=== PATIENT | female | born 1935 ===

== ENCOUNTER 2017-10-27 08:58 | Observation (INO) | payer MEDICARE, OTHER ==
[2017-10-27] MEDS ORDERED: ceFAZolin 1 gm in NS 2 GM/200 ML BAG IVPB ONE (09:23)
[2017-10-27] MEDS ORDERED: Lidocaine/Epinephrine 1% 1:100000 10 ML IJ ONE (09:24)
[2017-10-27] MEDS ORDERED: Bupivacaine 0.25% Inj(30mL) ONE (09:24)
[2017-10-27] MEDS ORDERED: Rocuronium 10 mg/ml (5 ml) ONE (09:54)
[2017-10-27] MEDS ORDERED: Propofol 10 mg/ml Inj (20 ML) ONE (09:54)
[2017-10-27] MEDS: Bupivacaine 0.25% Inj(30mL) ONE ×2 (10:51→11:41)
[2017-10-27] MEDS ORDERED: Sodium Chloride 0.9% 20 ML IV ONE (11:12)
[2017-10-27] MEDS ORDERED: Neostigmine Methylsulfate 3mg/3ml Syringe IV ONE (11:37)
[2017-10-27] MEDS ORDERED: Dexamethasone 4 mg/1 ml IVP PRN (11:45)
[2017-10-27] MEDS: HYDROmorphone 0.5 mg/0.5 ml ISec IVP PRN ×2 (12:20→13:15)
[2017-10-27] MEDS ORDERED: HYDROmorphone 1 mg/ml ISec ONE ×2 (12:22→13:16)
[2017-10-27] MEDS ORDERED: Oxycodone/Acetaminophen 5/325 mg Tab PO PRN (12:24)
--- NOTE | 2017-10-27 12:37 | PCM.SURG1 ---
Surgeon's Initial Post Op Note - Surgeon's Notes Surgeon: Dr. Gil Revival Clerk: CHRISTINA Mai; Jemima Lam, PGY2 Type of Anesthesia: General Endo Pre-Operative Diagnosis: Symptomatic cholelithiasis, cholecystitis Operative Findings: numerous adhesions, distended gallbladder, Post-Operative Diagnosis: same Operation Performed: Robotic assisted laparoscopic lysis of adhesions, cholecystectomy Specimen/Specimens Removed: Gallbladder Estimated Blood Loss: EBL {In ML}: 5 Blood Products Given: N/A Drains Used: No Drains Date of Surgery/Procedure: 10/27/17 Time of Surgery/Procedure: 11:00
[2017-10-27] MEDS ORDERED: Lactated Ringer's 1,000 ML IV ONE (14:00)
[2017-10-27] MEDS ORDERED: HYDROmorphone 0.5 mg/0.5 ml ISec IVP PRN (14:22)
[2017-10-27] MEDS: (Novolin R) Insulin Human Regular 100 units/ml vial SC SCH ×2 (16:46→22:13)
--- NOTE | 2017-10-28 00:46 | OP ---
PROCEDURE DATE: 10/27/2017 PREOPERATIVE DIAGNOSES: 1. Chronic cholecystitis and cholelithiasis. 2. Dilated common bile duct. 3. Possible postoperative and postinfectious adhesions status post hysterectomy. POSTOPERATIVE DIAGNOSES: 1. Chronic cholecystitis and cholelithiasis. 2. Dilated common bile duct. 3. Extensive postoperative and postinfectious adhesions of upper abdomen as well as right upper quadrant. PROCEDURES DONE: 1. Robotic cholecystectomy. 2. Robotic extensive lysis of adhesions. 3. Robotic aspiration and drainage of extremely dilated thickened gallbladder. 4. Laparoscopic bilateral transverse abdominis plane block placement. SURGEON: Mark Gil MD STAVE SAW OPERATOR: JULY Thibodeaux and Jemima Ramirez, PGY-2 resident. ANESTHESIA: General endotracheal tube anesthesia. ESTIMATED BLOOD LOSS: Around 20 mL. DRAINS: None. PATHOLOGY: Gallbladder with gallstone was sent for the pathology and aspirated fluid from the gallbladder was sent for the culture. COMPLICATIONS: None. INTRAOPERATIVE FINDINGS: The patient had extensive postoperative adhesion in the upper abdomen as well as right upper quadrant and patient had extremely thickened dilated large gallbladder filled with light color fluid and patient had changes of chronic cholecystitis and cholelithiasis. DESCRIPTION OF PROCEDURE: On intraoperative steps, this is an 82-year-old female who was diagnosed with chronic cholecystitis and patient had multiple admissions for similar reason and the patient also had a dilated CBD and after proper evaluation with MRCP, and after GI consult, the patient was consented for laparoscopic-assisted robotic cholecystectomy, brought to the OR, placed supine on the operating table after induction of the anesthesia. After induction of anesthesia, the abdomen was prepped and draped in the usual sterile fashion. The Amin catheter was placed and the supraumbilical transverse incision was made after incising the skin, subcutaneous tissue, and the fascia. The robotic camera port was placed and pneumo was created. Another 8-mm port was placed in the left upper quadrant after that extensive laparoscopic lysis of adhesions was done with LigaSure to clean the right upper quadrant to put another two 8 mm ports. After placing another two 8 mm ports in right upper quadrant, the robot was brought in, camera arm as well as arm 1 and arm 2 was docked and further lysis of adhesion as well as enterolysis was done and gallbladder was identified. Gallbladder appeared to be extremely thickened and dilated and large, and post aspiration of the gallbladder was done, the thin light colored fluid was drained; and after complete decompression of the gallbladder, the gallbladder was retracted cranially. Calot's triangle dissection was done. The duodenum as well as colonic adhesion to the gallbladder was dissected and the Calot's triangle dissection was continued. The cystic duct appeared to be extremely dilated and thickened. The common bile duct was also identified. Intraoperative Firefly was used, the cystic duct was clipped at 3 places and cut in between 2 clips nearby gallbladder. Cystic artery was also clipped at 3 places and cut in between 2 clips nearby gallbladder. The gallbladder was dissected free from the gallbladder fossa and taken in an EndoCatch bag, taken out through the umbilical port site and sent off the table for the pathology. There was proper hemostasis in each and every part of the procedure. The patient tolerated the procedure well. After proper hemostasis, all the robotic instrument was taken out. The procedure was converted to laparoscopic and a bilateral TAP block was given and 12:12 mL of Marcaine was injected in the right upper, lower and the left upper and lower subcostal region and TAP block was given. After that, all the port was taken out under vision, pneumo was deflated. Gallbladder was sent off the table for pathology. The umbilical port sites were closed in 2 layers, fascia with 0-Vicryl interrupted suture, skin with a 4-0 Monocryl, and dry sterile dressing was applied. The patient tolerated the procedure well. Count of the instrument and gauze was correct. There was no apparent complication. The patient was extubated in OR, sent to the Postanesthesia Care Unit in stable condition. Mark Gil MD RALPH
[2017-10-28 07:40] VITALS: PULSE 79; RESP 18; TEMP 98.7; O2SAT 97
[2017-10-28] MEDS: (Novolin R) Insulin Human Regular 100 units/ml vial SC SCH ×2 (08:01→12:15)
--- NOTE | 2017-10-28 09:56 | CP.PCM.DIS ---
Provider - Provider Date of Admission: 10/27/17 12:20 Attending physician: Mark Gil MD Time Spent in preparation of Discharge (in minutes): 45 Diagnosis - Discharge Diagnosis (1) Abdominal pain Status: Acute (2) Cholelithiasis Status: Chronic (3) Hyperlipidemia Status: Chronic (4) Diabetes mellitus Status: Chronic (5) Arthritis of knee, degenerative Status: Chronic (6) Parkinson disease Status: Chronic (7) HTN (hypertension) Status: Chronic Priority: Medium Hospital Course - Lab Results Lab Results: Most Recent Lab Values POC Glucose (mg/dL) 102 mg/dL (65-110) 10/28/17 05:53 - Hospital Course Hospital Course: Patient is a 82F with symptomatic cholelithiasis who presented for sameday robotic assisted laparoscopic cholecystectomy, which was performed without complications. Patient had significant postoperative pain and was admitted overnight with internal medicine consult for complex medical comorbidities. Patient was able to eat low fat diet without any nausea, vomiting, fevers, or chills. By post op day 1 patient was tolerating pain on PO pain regimen and was discharged home to follow up with Dr. Gil in his office in 10-14 days For full hospital course refer to chart Discharge Exam - Head Exam Head Exam: ATRAUMATIC, NORMOCEPHALIC - Eye Exam Eye Exam: Normal appearance. absent: Conjunctival injection, Scleral icterus - ENT Exam ENT Exam: Mucous Membranes Moist. absent: Mucous Membranes Dry - Respiratory Exam Respiratory Exam: NORMAL BREATHING PATTERN, UNREMARKABLE. absent: Accessory Muscle Use - GI/Abdominal Exam GI & Abdominal Exam: Soft, Tenderness (appropriate RUQ and dian-incisional tenderness to palpation). absent: Distended Additional comments: incision dressings C/D/I - Extremities Exam Extremities exam: normal inspection - Neurological Exam Neurological exam: Alert, Oriented x3 - Psychiatric Exam Psychiatric exam: Normal Affect, Normal Mood - Skin Skin Exam: Dry, Normal Color, Warm Discharge Plan - Discharge Medications Prescriptions: Docusate [Colace] 100 mg PO BID #14 cap oxyCODONE/Acetaminophen [Percocet 5/325 mg Tab] 1 ea PO Q6 3 Days tab - Follow Up Plan Condition: GOOD Disposition: HOME/ ROUTINE Instructions: Low Cholesterol, Saturated Fat, and Trans Fat Diet , Carbohydrate Counting Diet, Cholecystectomy, Laparoscopic Surgery, Diabetes Diet , Gallstones (DC), Docusate, Oxycodone and Acetaminophen, Managing Pain After Surgery Additional Instructions: Call to schedule follow up appointment wiarmando Coughlin in 10-[address] Gil's office or come to ER for fever >100.4, severe pain, drainage from incisions, any other concerning symptoms Do not life >10 pounds for 6 weeks Remove bandaids on Friday but leave tape on incisions until they fall off. Shower on Friday but do not soak incisions Take stool softeners to prevent constipation with the pain medications Follow up with your primary doctor Referrals: Mark Gil MD [Staff Provider] - Clinical Quality Measures - CQM - Stroke Antithrombotic Prescribed: Yes
[2017-10-28] MEDS ORDERED: Enoxaparin 30 mg Syringe SC SCH (10:00)
--- NOTE | 2017-10-28 12:19 | CP.PCM.HP ---
History of Present Illness - History of Present Illness History of Present Illness: Pre-Operative Diagnosis: Symptomatic cholelithiasis, cholecystitis Operative Findings: numerous adhesions, distended gallbladder, Post-Operative Diagnosis: same Operation Performed: Robotic assisted laparoscopic lysis of adhesions, cholecystectomy Past Patient History - Past Medical History & Family History Past Medical History?: Yes - Past Social History Smoking Status: Never Smoked - CARDIAC Hx Cardiac Disorders: Yes Hx Hypercholesterolemia: Yes Hx Hypertension: Yes - PULMONARY Hx Respiratory Disorders: Yes Hx Asthma: Yes (No longer) - NEUROLOGICAL Hx Neurological Disorder: Yes Hx Dizziness: Yes Hx Parkinson's Disease: Yes - HEENT Hx HEENT Problems: Yes Hx Cataracts: Yes - RENAL Hx Chronic Kidney Disease: No - ENDOCRINE/METABOLIC Hx Endocrine Disorders: No - HEMATOLOGICAL/ONCOLOGICAL Hx Blood Disorders: Yes Hx Cancer: Yes (Colon 4 years ) Hx Chemotherapy: Yes - INTEGUMENTARY Hx Dermatological Problems: Yes Hx Psoriasis: Yes (Back ) - MUSCULOSKELETAL/RHEUMATOLOGICAL Hx Musculoskeletal Disorders: Yes Hx Arthritis: Yes (Right knee) Hx Back Pain: Yes Hx Herniated Disk: Yes Hx Unsteady Gait: Yes - GASTROINTESTINAL Hx Gastrointestinal Disorders: Yes Hx Bowel Surgery: Yes (COLON CANCER 2010) Hx Gall Bladder Disease: Yes Hx Gastritis: Yes Other/Comment: Hx colon cancer - GENITOURINARY/GYNECOLOGICAL Hx Genitourinary Disorders: Yes Hx Incontinence: Yes - PSYCHIATRIC Hx Psychophysiologic Disorder: Yes Hx Anxiety: Yes Hx Depression: Yes Hx Substance Use: No - SURGICAL HISTORY Hx Surgeries: Yes Hx Appendectomy: Yes Hx Tubal Ligation: Yes - ANESTHESIA Hx Anesthesia: Yes Hx Anesthesia Reactions: No Hx Malignant Hyperthermia: No Has any member of the family had a problem w/ anesthesia?: No Meds Home Medications: Home Medication List Medication Instructions Recorded Confirmed Type Docusate [Colace] 100 mg PO BID #14 cap 10/28/17 Rx oxyCODONE/Acetaminophen [Percocet 1 ea PO Q6 3 Days tab 10/28/17 Rx 5/325 mg Tab] Allergies/Adverse Reactions: Allergies Allergy/AdvReac Type Severity Reaction Status Date / Time No Known Allergies Allergy Verified 10/13/17 12:13 Results - Vital Signs Recent Vital Signs: Last Vital Signs Temp 98.7 F 10/28/17 07:05 Pulse 79 10/28/17 07:05 Resp 18 10/28/17 07:05 BP 114/69 10/28/17 07:05 Pulse Ox 97 10/28/17 08:00 - Labs Labs: Laboratory Results - last 24 hr 10/27/17 10/27/17 10/27/17 12:39 16:30 21:49 POC Glucose (mg/dL) 145 H 126 H 157 H 10/28/17 10/28/17 05:53 11:08 POC Glucose (mg/dL) 102 145 H
[2017-10-28 15:22] VITALS: BP 96/57
== END 2017-10-28 18:50 | disposition home or self-care (01) ==
LOC: C.SDS 08:58 → C.9S 12:20 → C.6T 17:36
PROVIDERS: ADMIT Surgery Surgical Critical Care; ATTEND Surgery Surgical Critical Care
DX: K80.10 Calculus of gallbladder with chronic cholecystitis without obstruction (principal); K82.8 Other specified diseases of gallbladder; I10 Essential (primary) hypertension; E78.5 Hyperlipidemia, unspecified; E11.9 Type 2 diabetes mellitus without complications; K66.0 Peritoneal adhesions (postprocedural) (postinfection)
CPT/HCPCS: 47562; 82948; 88304; G0378; J0690; J1170; J1650; J2001; J2405; J2704; J2710; J3010; J7030; J7120

== ENCOUNTER 2017-10-31 15:40 | Emergency (ER) | payer MEDICARE, OTHER ==
[2017-10-31] MEDS ORDERED: Sodium Chloride 0.9% 500 ML IV ONE (16:32)
[2017-10-31] MEDS ORDERED: Sodium Chloride 0.9% 1,000 ML IV ONE (16:32)
[2017-10-31] MEDS ORDERED: Albuterol 0.083% Inhal Sol (2.5 mg/3 mL) UD INH STA (16:32)
--- NOTE | 2017-10-31 16:32 | C.PDOC ---
History Of Present Illness 82 year old female presents to the ED for evaluation of cough which began last night. Patient also reports subjective fever. Patient reports decreased appetite and states, "normally she eats well." Patient was discharged 4 days ago s/p laparoscopic cholecystectomy. Patient is baseline chairbound, family states patient has been out of bed and into chair and eating well since she was discharged, until yesterday. Patient denies nausea, vomiting, abdominal pain. COUGH SINCE LAST NIGHT. SUBJ FEVER. +DECR APPETITE "NORMALLY SHE EATS WELL" DC 4 DAYS AGO S/P LAP [place]. PT IS BASELINE CHAIRBOUND, FAMILY STATES PT HAS BEEN OOB AND INTO CHAIR, EATING WELL SINCE DC UNTIL YEST. +NO NV, ABD PAIN. EXAM MILD DIST NONTOXIC LUNGS POOR EFFORT NO W/R/R NO RETRACTIONS NO COUGH ABD SOFT NT DN NO R/G SKIN HEALING POST OP WOUNDS ABD WALL NO EDEMA REMAINDER NEG Time Seen by Provider: 10/31/17 16:07 Chief Complaint (Nursing): Weakness/Neurological Deficit History Per: Patient History/Exam Limitations: no limitations Onset/Duration Of Symptoms: Hrs Current Symptoms Are (Timing): Still Present Associated Symptoms: Fever, Cough. denies: Nausea, Vomiting Additional History Per: Patient Past Medical History Reviewed: Historical Data, Nursing Documentation, Vital Signs Vital Signs: Last Vital Signs Temp 98.5 F 10/31/17 22:32 Pulse 70 10/31/17 22:32 Resp 20 10/31/17 22:32 BP 150/60 10/31/17 22:32 Pulse Ox 99 10/31/17 23:21 - Medical History PMH: Anxiety, Arthritis (Right knee), Asthma (No longer), Back Problems, Depression, Diabetes (type II), Gastritis, Gall Bladder Disease, HTN, Hypercholesterolemia, Parkinson's Disease Denies: Chronic Kidney Disease Surgical History: Appendectomy - [facility] Procedures IMMOBILIZ/WOUND ATTN NEC (06/04/14) INJECT/INFUSE NEC (06/04/14) INTRODUCTION OF SERUM/TOX/VACCINE INTO MUSCLE, PERC APPROACH (10/13/17) Family History: States: Unknown Family Hx - Social History Hx Alcohol Use: No Hx Substance Use: No Review Of Systems Constitutional: Positive for: Fever Respiratory: Positive for: Cough Gastrointestinal: Negative for: Nausea, Vomiting, Abdominal Pain Physical Exam - Physical Exam Appears: Non-toxic, Other (in mild distress ) Skin: Normal Color, Warm, Dry, Other (healing post-op wounds to abdominal wall ) Head: Atraumatic, Normacephalic Eye(s): bilateral: Normal Inspection Oral Mucosa: Moist Neck: Supple Chest: Symmetrical, No Deformity, No Tenderness Cardiovascular: Rhythm Regular, No Murmur Respiratory: No Rales, No Rhonchi, No Wheezing, Other (poor effort. no retractions. no cough ) Gastrointestinal/Abdominal: Soft, No Tenderness, No Guarding, No Rebound Extremity: Normal ROM, Capillary Refill (less than 2 seconds ), No Other (edema ) Neurological/Psych: Oriented x3, Normal Speech, Normal Cognition ED Course And Treatment - Laboratory Results Result Diagrams: 10/31/17 16:40 10/31/17 16:40 O2 Sat by Pulse Oximetry: 99 (on RA) Pulse Ox Interpretation: Normal Progress Note: Bloodwork, CXR, EKG ordered and reviewed. Albuterol INH and IV Fluids administered. Progress - Re-Evaluation Re-evaluation Note: 10/31/17 17:58 APPEARS COMFORTABLE NARD VSS. EATING WO DIFF. DEE NO ACUTE FINDINGS. FAMILY AGREES DC HOME 10/31/17 18:01 INCENTIVE SPIROMETER GIVEN - Data Reviewed Data Reviewed: Lab, Diagnostic imaging, Old records Disposition Counseled Patient/Family Regarding: Studies Performed, Diagnosis, Need For Followup - Disposition Referrals: YOUR,PMD [Other] Mark Gil MD [Staff Provider] - Disposition: HOME/ ROUTINE Disposition Time: 17:59 Condition: IMPROVED Additional Instructions: SIT UPRIGHT, CHEST BREATHING EXERCISES. FOLLOW UP ADVISED BY SURGEON Instructions: How to Use an Incentive Spirometer, Cough, Adult (DC) Forms: [employer] (Thai) - Clinical Impression Clinical Impression: Cough - Scribe Statement The provider has reviewed the documentation as recorded by the Scribe (Siria Olvera) Provider Attestation: All medical record entries made by the Scribe were at my direction and personally dictated by me. I have reviewed the chart and agree that the record accurately reflects my personal performance of the history, physical exam, medical decision making, and the department course for this patient. I have also personally directed, reviewed, and agree with the discharge instructions and disposition.
[2017-10-31] MEDS ORDERED: Sodium Chloride 0.9% 1,000 ML ONE ×2 (16:42→17:43)
[2017-10-31] MEDS ORDERED: Albuterol 0.083% Inhal Sol (2.5 mg/3 mL) UD ONE (16:42)
[2017-10-31 16:45] LABS: BASO # 0.1 K/uL (0.0-0.2); BASO % 0.8 % (0.0-2.0); EOS # 0.5 K/uL (0.0-0.7); EOS % 6.2 % (0.0-4.0); HEMOGLOBIN 13.2 g/dL (11.0-16.0); LYMPH % 26.9 % (20.0-40.0); MEAN CELL VOLUME 95.7 fL (81.0-99.0); MEAN CORPUSCULAR HEMOGLOBIN 32.3 pg (27.0-31.0); MEAN CORPUSCULAR HGB CONC 33.8 g/dL (33.0-37.0); MEAN PLATELET VOLUME 9.6 fL (7.2-11.7); MONO # 0.7 K/uL (0.0-0.8); MONO % 9.6 % (0.0-10.0); NEUT # 4.2 K/uL (1.8-7.0); NEUT % 56.5 % (50.0-75.0); RBC 4.07 Mil/uL (3.80-5.20); WHITE BLOOD COUNT 7.4 K/uL (4.8-10.8)
[2017-10-31 16:56] LABS: CALCIUM 8.8 mg/dl (8.6-10.4); GFR AFRICAN-AMERICAN > 60; GFR NON-AFRICAN AMERICAN > 60
[2017-10-31 16:57] LABS: ALB/GLOB RATIO 0.8 (1.0-2.1); ALBUMIN 3.5 g/dL (3.5-5.0); ALT/SGPT 13 U/L (9-52); AST/SGOT 69 U/L (14-36); BLOOD UREA NITROGEN 14 mg/dL (7-17)
--- NOTE | 2017-10-31 17:12 | RAD ---
PROCEDURE: CHEST RADIOGRAPH, 1 VIEW HISTORY: Pneumonia COMPARISON: 04/24/2011 FINDINGS: LUNGS: Clear. PLEURA: No pneumothorax or pleural fluid seen. CARDIOVASCULAR: No radiographic findings to suggest acute or significant cardiovascular disease. OSSEOUS STRUCTURES: No significant abnormalities. VISUALIZED UPPER ABDOMEN: Normal. OTHER FINDINGS: None. IMPRESSION: No active disease. No acute/significant interval changes. Concordant results with the preliminary interpretation rendered by the emergency department physician procedure.
[2017-10-31 21:11] VITALS: TEMP 98.5
[2017-10-31 22:33] VITALS: BP 150/60; PULSE 70; RESP 20
[2017-10-31 23:29] VITALS: O2SAT 99
--- NOTE | 2017-11-03 17:04 | CARD ---
APPROVED REPORT EKG Measurement Heart [id number] <Conclusion> Normal sinus rhythm Left bundle branch block Abnormal ECG
== END 2017-10-31 23:36 | disposition home or self-care (01) ==
LOC: C.ER 15:40
DX: R05 Cough (principal); J45.909 Unspecified asthma, uncomplicated; I10 Essential (primary) hypertension
CPT/HCPCS: 71045; 80053; 85025; 87040; 94640; 99285; J7040